=== PATIENT | female | born 1960 | race Caucasian/White ===

== ENCOUNTER 2018-03-13 18:33 | Emergency (ER) | payer BC ==
[2018-03-13] MEDS ORDERED: METHYLPREDNISOLONE 125 MG INJ ONE (19:40)
[2018-03-13] MEDS ORDERED: IPRATROPIUM BROM 0.5MG/2.5ML ONE ×2 (19:40→22:04)
[2018-03-13] MEDS ORDERED: LEVALBUTEROL 1.25 MG/3 ML NEB ONE (19:41)
[2018-03-13] MEDS ORDERED: MAGNESIUM SULFATE 1 gm IVPB 1 GM/100 ML BAG IV ONE (19:41)
[2018-03-13 20:07] LABS: Absolute Lymphocytes (CBC) 1.4 K/uL (0.7-4.9); Absolute Monocytes 0.6 K/uL (0.1-1.3); Absolute Neutrophil 8.7 K/uL (1.8-8.0); Basophils % 0.3 % (0-1.3); Eosinophils % 2.4 % (0-4.4); Lymphocytes % 12.8 % (15.3-44.8); MCH 29.3 pg (27.0-35.0); MCV 87.1 fL (80-100); MPV 8.8 fL (7.6-11.3); Monocytes % 5.4 % (3.3-12.3); RBC Red Blood Cell Count 5.17 M/uL (3.86-4.86)
--- NOTE | 2018-03-13 21:30 | RAD REPORT ---
EXAM DESCRIPTION: RAD - Chest Pa And Lat (2 Views) - 03/13/2018 8:52 pm CLINICAL HISTORY: Cough and congestion COMPARISON: October 2017 TECHNIQUE: PA and lateral views of the chest were obtained. FINDINGS: The lungs are clear. Interstitial markings are similar to comparison. Heart size is liliana l and central vasculature is within normal limits. No pleural effusion or pneumothorax seen. No acu te bony finding noted. No aortic abnormality. IMPRESSION: No acute cardiopulmonary process. No significant interval change.
[2018-03-13] MEDS ORDERED: ALBUTEROL 2.5 MG/3 ML NEB SOL ONE (22:04)
--- NOTE | 2018-03-13 23:06 | ER ---
Nurse's Notes [facility] Name: Guillermina Diallo Age: 58 yrs Sex: Female : 1960 Arrival Date: 03/13/2018 Time: 18:34 Bed 14 Private MD: Giovany Rincon Diagnosis: Bronchitis, not specified as acute or chronic Presentation: 03/13 18:43 Presenting complaint: Patient states: I have had SOB and a cough for one week, I went la1 to urgent care and they sent me here to R/O PNE. Transition of care: patient was not received from another setting of care. Onset of symptoms was March 13, 2018. Initial Sepsis Screen: Does the patient meet any 2 criteria? No. Patient's initial sepsis screen is negative. Does the patient have a suspected source of infection? No. Patient initial sepsis screen negative. Care prior to arrival: None. 18:43 Method Of Arrival: Ambulatory la1 18:43 Acuity: KRISTY 3 la1 Historical: - Allergies: 18:44 No Known Allergies; la1 - PMHx: 18:44 None; la1 - Immunization history:: Adult Immunizations up to date. - Social history:: Smoking status: Patient/guardian denies using tobacco. Screenin:45 Abuse screen: Denies threats or abuse. Denies injuries from another. Nutritional aa1 screening: No deficits noted. Tuberculosis screening: No symptoms or risk factors identified. Fall Risk None identified. Assessment: 19:45 General: Appears in no apparent distress. comfortable, Behavior is calm, cooperative, aa1 appropriate for age. Pain: Denies pain. Neuro: Level of Consciousness is awake, alert, obeys commands, Oriented to person, place, time, situation, Moves all extremities. Full function Speech is normal. Cardiovascular: Heart tones S1 S2 present Rhythm is regular. Respiratory: Reports shortness of breath cough that is productive, Airway is patent Respiratory effort is even, unlabored, Respiratory pattern is regular, symmetrical, Breath sounds are clear bilaterally. Onset: The symptoms/episode began/occurred 1 week ago, the patient has mild shortness of breath. GI: No signs and/or symptoms were reported involving the gastrointestinal system. : No signs and/or symptoms were reported regarding the genitourinary system. EENT: No signs and/or symptoms were reported regarding the EENT system. Derm: Skin is intact, is healthy with good turgor, Skin is pink, warm \T\ dry. Musculoskeletal: Circulation, motion, and sensation intact. Capillary refill < 3 seconds. 20:56 Reassessment: Patient appears in no apparent distress at this time. Patient and/or aa1 family updated on plan of care and expected duration. Pain level reassessed. Patient is alert, oriented x 3, equal unlabored respirations, skin warm/dry/pink. Pt back from xray; awaiting results. 21:35 Reassessment: Patient appears in no apparent distress at this time. Patient and/or aa1 family updated on plan of care and expected duration. Pain level reassessed. Patient is alert, oriented x 3, equal unlabored respirations, skin warm/dry/pink. Awaiting provider reassessment. 22:24 Reassessment: Patient appears in no apparent distress at this time. Patient and/or aa1 family updated on plan of care and expected duration. Pain level reassessed. Patient is alert, oriented x 3, equal unlabored respirations, skin warm/dry/pink. 2nd neb tx in progress. 23:19 Reassessment: Patient appears in no apparent distress at this time. Patient is alert, aa1 oriented x 3, equal unlabored respirations, skin warm/dry/pink. Discussed d/c \T\ f/u instructions with pt; denies questions or concerns at this time Patient denies pain at this time. Patient states feeling better. Patient states symptoms have improved. Vital Signs: 18:44 BP 124 / 89; Pulse 101; Resp 21; Temp 98.0(TE); Pulse Ox 93% on R/A; Weight 67.13 kg; la1 Height 5 ft. 4 in. (162.56 cm); 19:49 BP 124 / 70; Pulse 91; Resp 20; Pulse Ox 100% on Nebulizer Mask; mt 20:41 BP 113 / 63; Pulse 98; Resp 18; Pulse Ox 96% on R/A; mt 21:35 BP 117 / 60; Pulse 87; Resp 18; Pulse Ox 94% ; Pain 0/10; aa1 22:24 BP 110 / 68; Pulse 89; Resp 18; Pulse Ox 98% on Nebulizer Mask; Pain 0/10; aa1 23:19 BP 107 / 63; Pulse 98; Resp 18; Pulse Ox 98% on R/A; Pain 0/10; aa1 18:44 Body Mass Index 25.40 (67.13 kg, 162.56 cm) la1 ED Course: 18:34 Patient arrived in ED. as 18:34 Giovany Rincon MD is Private Physician. as 18:44 Triage completed. la1 18:45 Arm band placed on left wrist. la1 19:00 Macey Dick FNP-C is [facility]. kb 19:00 Tobi Reid MD is Attending Physician. kb 19:39 Jenn Mckinnon RN is Primary Nurse. aa1 19:45 Patient has correct armband on for positive identification. Bed in low position. Call aa1 light in reach. Warm blanket given. Diet: Patient given water. 19:45 Inserted saline lock: 20 gauge in right antecubital area, using aseptic technique. mt Blood collected. 19:45 Initial lab(s) drawn, by ED staff, sent to lab. aa1 20:50 Chest Pa And Lat (2 Views) XRAY In Process Unspecified. EDMS 23:19 No provider procedures requiring assistance completed. IV discontinued, intact, aa1 bleeding controlled, No redness/swelling at site. Pressure dressing applied. Administered Medications: 19:45 Drug: SOLU-Medrol 125 mg Route: IVP; Site: right antecubital; aa1 23:19 Follow up: Response: No adverse reaction; Marked relief of symptoms aa1 19:47 Drug: Magnesium Sulfate 1 grams Route: IVPB; Infused Over: 1 hrs; Site: right aa1 antecubital; 20:58 Follow up: IV Status: Completed infusion aa1 20:59 Follow up: IV Status: Completed infusion aa1 19:51 Drug: Xopenex (3) 1.25 mg Route: Inhalation; aa1 19:51 Drug: AtroVENT Aerosol 0.5 mg Route: Inhalation; aa1 22:07 Drug: DuoNeb (3:1) (2.5 mg - 0.5 mg) 3 ml Route: Nebulizer; bp 23:18 Follow up: Response: No adverse reaction; Marked relief of symptoms aa1 Outcome: 23:05 Discharge ordered by . kb 23:21 Discharged to home ambulatory. aa1 23:21 Condition: good 23:21 Discharge instructions given to patient, Instructed on discharge instructions, follow up and referral plans. medication usage, Demonstrated understanding of instructions, follow-up care, medications, Prescriptions given X 2. 23:21 Patient left the ED. aa1 Signatures: Dispatcher [employer] EDMacey Najera, ELLIOT DEL CID-Jenn Lowery RN RN aa1 Breanna Martinez Lee, RN RN la1 Vilma Stewart mt, Brian RN RN bp
--- NOTE | 2018-03-13 23:06 | EDPHYS ---
Physician Documentation [facility] Name: Guillermina Diallo Age: 58 yrs Sex: Female : 1960 Arrival Date: 03/13/2018 Time: 18:34 Bed 14 Private MD: Giovany Rincon ED Physician Tobi Reid HPI: 03/13 19:48 This 58 yrs old Female presents to ER via Ambulatory with complaints of kb Cough, Shortness Of Breath. 19:48 The patient or guardian reports cough, that is intermittent, described as moderate, kb with no sputum, difficulty breathing. Onset: The symptoms/episode began/occurred 1 week(s) ago. Severity of symptoms: At their worst the symptoms were moderate, in the emergency department the symptoms are unchanged. Modifying factors: The symptoms are alleviated by nothing, the symptoms are aggravated by nothing. Associated signs and symptoms: The patient has no apparent associated signs or symptoms. The patient has not experienced similar symptoms in the past. The patient has not recently seen a physician. Pt states she has had a cough and intermittent shortness of breath for over a week. Went to urgent care and was sent here for evaluation. States "I will do whatever you want, but I'm not staying overnight. I cannot be admitted." Has been doing breathing treatments and using inhaler at home with no relief. . Historical: - Allergies: 18:44 No Known Allergies; la1 - PMHx: 18:44 None; la1 - Immunization history:: Adult Immunizations up to date. - Social history:: Smoking status: Patient/guardian denies using tobacco. ROS: 19:46 Constitutional: Negative for fever, chills, and weight loss, ENT: Negative for injury, kb pain, and discharge, Neck: Negative for injury, pain, and swelling, Cardiovascular: Negative for chest pain, palpitations, and edema, Abdomen/GI: Negative for abdominal pain, nausea, vomiting, diarrhea, and constipation, Back: Negative for injury and pain, MS/Extremity: Negative for injury and deformity, Skin: Negative for injury, rash, and discoloration, Neuro: Negative for headache, weakness, numbness, tingling, and seizure. 19:46 Respiratory: Positive for cough, with no reported sputum, dyspnea on exertion, shortness of breath, Negative for hemoptysis, orthopnea, pleurisy, sputum production, wheezing. Exam: 19:46 Constitutional: This is a well developed, well nourished patient who is awake, alert, kb and in no acute distress. Head/Face: Normocephalic, atraumatic. Chest/axilla: Normal chest wall appearance and motion. Nontender with no deformity. No lesions are appreciated. Cardiovascular: Regular rate and rhythm with a normal S1 and S2. No gallops, murmurs, or rubs. Normal PMI, no JVD. No pulse deficits. Abdomen/GI: Soft, non-tender, with normal bowel sounds. No distension or tympany. No guarding or rebound. No evidence of tenderness throughout. Skin: Warm, dry with normal turgor. Normal color with no rashes, no lesions, and no evidence of cellulitis. MS/ Extremity: Pulses equal, no cyanosis. Neurovascular intact. Full, normal range of motion. Neuro: Awake and alert, GCS 15, oriented to person, place, time, and situation. Cranial nerves II-XII grossly intact. Motor strength 5/5 in all extremities. Sensory grossly intact. Cerebellar exam normal. Normal gait. 19:46 Respiratory: the patient does not display signs of respiratory distress, Respirations: normal, Breath sounds: decreased breath sounds, that are moderate, are located in both bases, wheezing: expiratory that is moderate, is heard diffusely. Vital Signs: 18:44 BP 124 / 89; Pulse 101; Resp 21; Temp 98.0(TE); Pulse Ox 93% on R/A; Weight 67.13 kg; la1 Height 5 ft. 4 in. (162.56 cm); 19:49 BP 124 / 70; Pulse 91; Resp 20; Pulse Ox 100% on Nebulizer Mask; mt 20:41 BP 113 / 63; Pulse 98; Resp 18; Pulse Ox 96% on R/A; mt 21:35 BP 117 / 60; Pulse 87; Resp 18; Pulse Ox 94% ; Pain 0/10; aa1 22:24 BP 110 / 68; Pulse 89; Resp 18; Pulse Ox 98% on Nebulizer Mask; Pain 0/10; aa1 23:19 BP 107 / 63; Pulse 98; Resp 18; Pulse Ox 98% on R/A; Pain 0/10; aa1 18:44 Body Mass Index 25.40 (67.13 kg, 162.56 cm) la1 MDM: 19:18 Patient medically screened. kb 19:46 Data reviewed: vital signs, nurses notes. Data interpreted: Pulse oximetry: on room air kb is 93 %. Interpretation: borderline. 23:05 Counseling: I had a detailed discussion with the patient and/or guardian regarding: the kb historical points, exam findings, and any diagnostic results supporting the discharge/admit diagnosis, lab results, radiology results, the need for outpatient follow up, a family practitioner, to return to the emergency department if symptoms worsen or persist or if there are any questions or concerns that arise at home. 03/13 19:34 Order name: CBC with Diff; Complete Time: 20:20 kb 03/13 19:34 Order name: Basic Metabolic Panel; Complete Time: 20:08 kb 03/13 19:00 Order name: Chest Pa And Lat (2 Views) XRAY; Complete Time: 21:31 kb 03/13 19:34 Order name: IV Start; Complete Time: 19:48 kb Administered Medications: 19:45 Drug: SOLU-Medrol 125 mg Route: IVP; Site: right antecubital; aa1 23:19 Follow up: Response: No adverse reaction; Marked relief of symptoms aa1 19:47 Drug: Magnesium Sulfate 1 grams Route: IVPB; Infused Over: 1 hrs; Site: right aa1 antecubital; 20:58 Follow up: IV Status: Completed infusion aa1 20:59 Follow up: IV Status: Completed infusion aa1 19:51 Drug: Xopenex (3) 1.25 mg Route: Inhalation; aa1 19:51 Drug: AtroVENT Aerosol 0.5 mg Route: Inhalation; aa1 22:07 Drug: DuoNeb (3:1) (2.5 mg - 0.5 mg) 3 ml Route: Nebulizer; bp 23:18 Follow up: Response: No adverse reaction; Marked relief of symptoms aa1 Disposition: 03/14 10:04 Co-signature as Attending Physician, Tobi Reid MD. rn Disposition: 03/13/18 23:05 Discharged to Home. Impression: Bronchitis, not specified as acute or chronic. - Condition is Stable. - Discharge Instructions: Acute Bronchitis, [id number]. - Prescriptions for Prednisone 20 mg Oral Tablet - take 1 tablet by ORAL route once daily for 5 days; 5 tablet. Zithromax Z- Osei 250 mg Oral Tablet - take 1 tablet by ORAL route as directed for 5 days Day 1 - take two (2) tablets one time. Day 2, 3, 4 , 5 take one (1) tablet once daily.; 6 tablet. - Medication Reconciliation Form, Thank You Letter, Antibiotic Education, Prescription Opioid Use, Work release form form. - Follow up: Emergency Department; When: As needed; Reason: Worsening of condition. Follow up: Private Physician; When: 2 - 3 days; Reason: Recheck today's complaints, Continuance of care, Re-evaluation by your physician. Signatures: Dispatcher [employer] EDMS Macey Dick, [employer]GER-C [employer] MANAGER-Jenn Lowery, RN RN aa1 Tobi Reid MD MD rn Attema, Lee, RN RN la1 William Orozco RN RN bp
== END 2018-03-13 23:21 | disposition home or self-care (01) ==
LOC: ER 18:33
DX: J40 Bronchitis, not specified as acute or chronic (principal)
CPT/HCPCS: 36415; 71046; 80048; 85025; 94640; 96365; 96375; 99284; J2930; J3475

== ENCOUNTER 2021-01-30 07:28 | Day surgery (SDC) | payer OTHER ==
--- NOTE | 2021-01-28 22:25 | EKG ---
Test Date: 2021-01-28 Test Time: 11:50:33 Cabin Agent: JOSE GUADALUPE MEASUREMENT RESULTS: Intervals: Rate: 62 AL: 134 QRSD: 68 QT: 420 QTc: 426 Richardson: P: 23 AL: 134 QRS: 57 T: 54 INTERPRETIVE STATEMENTS: Normal sinus rhythm Normal ECG No previous ECG available for comparison Electronically Signed On 01-28-21 22:25:23 BLOOD SPLATTER ANALYST by Dayton Lindsey
[2021-01-30] MEDS ORDERED: OFLOXACIN OPH 0.3%-5 ML BTL ONE (08:07)
[2021-01-30] MEDS ORDERED: Ringers Lactate 1,000 ML IV ONE (08:16)
[2021-01-30] MEDS ORDERED: LIDOCAINE 2% MPF 5 ML VIAL ONE (08:31)
[2021-01-30] MEDS ORDERED: propofoL 200 MG/20 ML VIAL IV ONE (08:31)
[2021-01-30] MEDS ORDERED: FENTANYL CITR 100 MCG/2 ML ONE (08:31)
[2021-01-30] MEDS ORDERED: MIDAZOLAM HCL 2 MG/2 ML INJ ONE (08:31)
[2021-01-30] MEDS ORDERED: ONDANSETRON 4 MG/2 ML VIAL ONE (08:33)
[2021-01-30] MEDS ORDERED: OXYMETAZOLINE HCL 0.05% 15ML NAS ONE (08:35)
[2021-01-30 09:41] VITALS: BP 131/64; TEMP 97; O2SAT 96
[2021-01-30] MEDS ORDERED: IBUPROFEN 400 MG TAB ONE (09:49)
--- NOTE | 2021-02-06 11:27 | OP ---
Date of Procedure: 01/30/2021 Surgeon: Mari Hickman MD Preoperative Diagnoses: Conductive hearing loss, right chronic serous otitis media with inability to tolerate in office procedure. Postoperative Diagnoses: Conductive hearing loss, right chronic serous otitis media with inability t o tolerate in office procedure. Procedure: Right myringotomy with tympanostomy tube placement under general anesthesia and nasal end oscopy. Indications For Procedure: Ms. Diallo presented with a right unilateral serous effusion, which did no t improve over a 3 month period. We recommended placement of a tympanostomy tube and nasal endoscopy to evaluate the opening of the eustachian tube and other nasopharyngeal structures. The patient had severe anxiety and was unable to tolerate the procedure in the office. She was therefore brought to the operating room for her treatment. Anesthesia: General via LMA. Iv Fluids: 250 mL. Implants: Paparella type 1 tube to the right eardrum. Description Of Procedure: The patient was brought to the operating room. She was placed under gener al anesthesia via LMA. The left ear was examined using an ear speculum and the operating microscope. There was no evidence of tympanic perforation, retraction, or middle ear fluid. Attention was then turned to the right ear. The right ear was mildly retracted within light padma appearing serous eff usion. A myringotomy knife was used to make an incision in the anterior-inferior quadrant and a 5-Fr ench Ngo suction was used to remove the middle ear fluid. A Paparella type 1 tympanostomy tube w as placed using an alligator and pick across the myringotomy incision. The lumen of the tube was the n suctioned using a 3-Estonian suction. Due to the lack of visible mucosal inflammation or active infe ction no antibiotic eardrops were required. The operating microscope was then removed from the field and a 0 degree rigid endoscope was used to perform a nasal endoscopy. The rigid scope was passed th rough the nasal cavity. The septum, inferior turbinate, middle turbinate, superior turbinate were al l unremarkable with no evidence of significant mucosal inflammation, no polyps, no significant mucus, and no purulence. The scope was then passed to the nasopharynx where there was no significant adeno id tissue, the fossa of Rosenmuller appeared clear, the torus tubarius appeared smooth but edematous and the mucosa of the eustachian tube opening appeared edematous, but no evidence of tumor, friabilit y, or other worrisome soft tissue process. A similar procedure was performed on the left side. Due to equipment malfunction, I was then able to take photographs of the nasopharynx during this procedur e. The scope was withdrawn from the nose and the procedure was concluded. The patient was returned to Anesthesia for awakening and extubation in the operating room, which proceeded without difficulty. Disposition: The patient will be discharged home later today and follow up with Dr. Vick ventura as previously scheduled. EDWIN/MICHAEL Voice ID: [id number] Report ID: [id number]
== END 2021-01-30 10:00 | disposition home or self-care (01) ==
LOC: PRE 07:28
PROVIDERS: ATTEND Otolaryngology
PROC: 099570Z Drainage of Right Middle Ear with Drainage Device, Via Natural or Artificial Opening (ICD-10-PCS; 2021-01-30)
PROC: 09JY8ZZ Inspection of Sinus, Via Natural or Artificial Opening Endoscopic (ICD-10-PCS; 2021-01-30)
PROC: 099670Z Drainage of Left Middle Ear with Drainage Device, Via Natural or Artificial Opening (ICD-10-PCS; principal; 2021-01-30 08:30)
DX: H65.21 Chronic serous otitis media, right ear (principal); H68.021 Chronic Eustachian salpingitis, right ear; H90.6 Mixed conductive and sensorineural hearing loss, bilateral
CPT/HCPCS: 69436; 31231; 93005; J2704; J2250; J3010; J7120; J2405

== ENCOUNTER 2022-05-14 07:12 | Day surgery (SDC) | payer OTHER ==
[2022-05-14] MEDS ORDERED: Ringers Lactate 1,000 ML IV ONE (07:36)
[2022-05-14] MEDS: OFLOXACIN OPH 0.3%-5 ML BTL ONE ×3 (08:08→09:35)
[2022-05-14] MEDS ORDERED: MIDAZOLAM HCL 2 MG/2 ML INJ ONE (09:21)
[2022-05-14] MEDS ORDERED: FENTANYL CITR 100 MCG/2 ML ONE (09:21)
[2022-05-14] MEDS ORDERED: propofoL 200 MG/20 ML VIAL IV ONE (09:21)
[2022-05-14] MEDS ORDERED: ONDANSETRON 4 MG/2 ML VIAL ONE (09:22)
[2022-05-14] MEDS ORDERED: LIDOCAINE 1% MPF 5 ML VIAL ONE (09:22)
--- NOTE | 2022-05-14 09:44 | P.OP ---
Date of Service: 05/14/22 Preoperative diagnosis: Chronic nonsuppurative otitis media, right; bilateral mixed hearing loss Postoperative diagnosis: Same Procedure: Right myringotomy and tympanostomy tube placement Surgeon: Mari Hickman MD Vamp Liner: None Anesthesia: General via laryngeal mask airway Estimated blood loss: Nil Fluids/blood products: None Specimen: None Implants: Pennington T tube Findings: Significant serous otitis media with mild tympanic retraction Indication: The patient had persistent symptoms and abnormal findings in spite of good medical management. Details of operation: The patient was brought to the operating room and placed under general anesthesia via laryngeal mask airway. The right ear was visualized under the operating microscope with assistance of an ear speculum. Cerumen was removed from the canal using a wire curette. A myringotomy incision was made in the anterior-inferior quadrant and copious serous, padma fluid was aspirated from the middle ear space. The middle ear space was not significantly inflamed. A Pennington T tube was positioned across the incision using an alligator forcep and pick. No eardrops were necessary. Patient was returned to care of anesthesia for awakening and transportation to the recovery room. Disposition the patient will be discharged home later today in the care of their family and follow-up with Dr. Hickman's office in approximately 1 to 2 weeks.
[2022-05-14 10:07] VITALS: O2SAT 98
[2022-05-14 13:14] VITALS: BP 120/86; TEMP 97
== END 2022-05-14 10:50 | disposition home or self-care (01) ==
LOC: OR 07:12
PROVIDERS: ATTEND Otolaryngology
PROC: 099570Z Drainage of Right Middle Ear with Drainage Device, Via Natural or Artificial Opening (ICD-10-PCS; principal; 2022-05-14 09:15)
DX: H65.491 Other chronic nonsuppurative otitis media, right ear (principal); H90.6 Mixed conductive and sensorineural hearing loss, bilateral
CPT/HCPCS: 69436; J2704; J2250; J3010; J7120; J2405

== ENCOUNTER 2022-10-13 11:22 | Emergency (ER) | payer OTHER ==
[2022-10-13] MEDS ORDERED: IBUPROFEN 400 MG TAB ONE (12:18)
[2022-10-13] MEDS ORDERED: HYDROCODONE/APAP 10/325 TAB ONE (12:18)
[2022-10-13] MEDS ORDERED: IBUPROFEN 200 MG TAB PO ONE (12:18)
--- NOTE | 2022-10-13 12:34 | RAD REPORT ---
EXAM DESCRIPTION: RAD - Wrist Right 3 View - 10/13/2022 12:05 pm CLINICAL HISTORY: Right wrist pain FINDINGS: No fracture or dislocation is seen. No significant bone or joint abnormality noted
--- NOTE | 2022-10-13 14:01 | ER ---
Nurse's Notes [facility] Name: Guillermina Diallo Age: 62 yrs Sex: Female : 1960 Arrival Date: 10/13/2022 Time: 11:25 Bed 3 Private MD: Magui Zarate Diagnosis: Pain in right wrist;Sprain of unspecified part of right wrist and hand Presentation: 10/13 11:48 Chief complaint: Patient states: R wrist pain, swelling, 30 min PRACTICE MANAGERS. No specific trauma ll1 or injury. No blood thinners. Coronavirus screen: Vaccine status: Patient reports receiving the 2nd dose of the covid vaccine. Client denies travel out of the [place] in the last 14 days. At this time, the client does not indicate any symptoms associated with coronavirus-19. Ebola Screen: Patient denies travel to an Ebola-affected area in the 21 days before illness onset. Initial Sepsis Screen: Does the patient meet any 2 criteria? No. Patient's initial sepsis screen is negative. Does the patient have a suspected source of infection? No. Patient's initial sepsis screen is negative. Risk Assessment: Do you want to hurt yourself or someone else? Patient reports no desire to harm self or others. Onset of symptoms was October 13, 2022. 11:48 Method Of Arrival: Ambulatory ll1 11:48 Acuity: KRISTY 4 ll1 Triage Assessment: 11:48 General: Appears uncomfortable, Behavior is cooperative, appropriate for age. Pain: ll1 Complains of pain in right arm Quality of pain is described as aching. Musculoskeletal: Reports pain in right arm. Injury Description: Bruise. Historical: - Allergies: 11:52 adhesive tape-silicones; ll1 - PMHx: 11:52 Hypertensive disorder; Hypothyroidism; ll1 - Immunization history:: Client reports receiving the 2nd dose of the Covid vaccine. - Social history:: Smoking status: Patient denies any tobacco usage or history of. - Family history:: not pertinent. Screenin:40 Abuse screen: Denies threats or abuse. Denies injuries from another. Nutritional ko1 screening: On. Tuberculosis screening: No symptoms or risk factors identified. Fall Risk None identified. Assessment: 12:40 General: Appears in no apparent distress. comfortable, Behavior is calm, cooperative, ko1 appropriate for age. Pain: Complains of pain in palmar aspect of right wrist. Neuro: No deficits noted. Cardiovascular: No deficits noted. Respiratory: No deficits noted. GI: No deficits noted. : No deficits noted. EENT: No deficits noted. Derm: No deficits noted. Musculoskeletal: No deficits noted. Vital Signs: 11:48 BP 154 / 74; Pulse 80; Resp 16; Temp 98.0; Pulse Ox 98% ; Weight 63.5 kg; Height 5 ft. ll1 4 in. (162.56 cm); Pain 7/10; 14:02 BP 144 / 86; Pulse 76; Pulse Ox 99% on R/A; ko1 11:48 Body Mass Index 24.03 (63.50 kg, 162.56 cm) ll1 ED Course: 11:25 Patient arrived in ED. am2 11:25 Magui Zarate is Private Physician. am2 11:31 Enrico Rossi MD is Attending Physician. brayan 11:48 Arm band placed on. ll1 11:51 Triage completed. ll1 12:05 Wrist Right 3 View XRAY In Process Unspecified. EDMS 12:14 Tae Marlow, RUKHSANA is Primary Nurse. ko1 12:40 Patient has correct armband on for positive identification. Bed in low position. Call ko1 light in reach. Side rails up X 1. Pulse ox on. NIBP on. Door closed. Noise minimized. Ice pack to injury. 14:00 Magui Zarate is Referral Physician. [facility] 14:00 Flaco Jalloh MD is Referral Physician. [facility] 14:02 No provider procedures requiring assistance completed. Patient did not have IV access ko1 during this emergency room visit. Administered Medications: 12:22 Drug: Motrin (ibuprofen) 600 mg Route: PO; ko1 12:22 Drug: [place] (HYDROcodone-acetaminophen) 10 mg-325 mg 1 tabs Route: PO; ko1 Medication: 14:02 VIS not applicable for this client. ko1 Outcome: 14:01 Discharge ordered by . brayan 14:03 Discharged to home ambulatory. ko1 14:03 Condition: stable 14:03 Discharge instructions given to patient, Instructed on discharge instructions, follow up and referral plans. medication usage, Demonstrated understanding of instructions, follow-up care, medications, Prescriptions given X 1. 14:08 Patient left the ED. ko1 Signatures: Dispatcher [employer] Enrico Jones MD MD cha Moreno, Amanda am2 Lewis, Lynsay RN RN ll1 Tea Marlow RN RN ko1
--- NOTE | 2022-10-13 14:01 | EDPHYS ---
Physician Documentation [facility] Name: Guillermina Diallo Age: 62 yrs Sex: Female : 1960 Arrival Date: 10/13/2022 Time: 11:25 Bed 3 Private MD: Magui Zarate ED Physician Enrico Rossi HPI: 10/13 13:57 This 62 yrs old Female presents to ER via Ambulatory with complaints of Wrist brayan Injury - right. 13:57 The patient or guardian reports decreased range of motion, pain. The complaints affect brayan the right wrist diffusely. Context: The problem was sustained at work, resulted from a fall. Onset: The symptoms/episode began/occurred just prior to arrival. Modifying factors: The symptoms are alleviated by nothing, the symptoms are aggravated by movement. Associated signs and symptoms: The patient has no apparent associated signs or symptoms. Compartment Syndrome negative for numbness, tingling, positive for pain. The patient has not experienced similar symptoms in the past. Historical: - Allergies: 11:52 adhesive tape-silicones; ll1 - PMHx: 11:52 Hypertensive disorder; Hypothyroidism; ll1 - Immunization history:: Client reports receiving the 2nd dose of the Covid vaccine. - Social history:: Smoking status: Patient denies any tobacco usage or history of. - Family history:: not pertinent. ROS: 13:57 Constitutional: Negative for fever, chills, and weight loss, Eyes: Negative for injury, brayan pain, redness, and discharge, ENT: Negative for injury, pain, and discharge, Neck: Negative for injury, pain, and swelling, Cardiovascular: Negative for chest pain, palpitations, and edema, Respiratory: Negative for shortness of breath, cough, wheezing, and pleuritic chest pain, Abdomen/GI: Negative for abdominal pain, nausea, vomiting, diarrhea, and constipation, Back: Negative for injury and pain, : Negative for injury, bleeding, discharge, and swelling, Skin: Negative for injury, rash, and discoloration, Neuro: Negative for headache, weakness, numbness, tingling, and seizure, Psych: Negative for depression, anxiety, suicide ideation, homicidal ideation, and hallucinations, Allergy/Immunology: Negative for hives, rash, and allergies, Endocrine: Negative for neck swelling, polydipsia, polyuria, polyphagia, and marked weight changes, Hematologic/Lymphatic: Negative for swollen nodes, abnormal bleeding, and unusual bruising. 13:57 MS/extremity: Positive for decreased range of motion, pain, tenderness, of the dorsal aspect of right wrist and palmar aspect of right wrist. Exam: 13:57 Constitutional: This is a well developed, well nourished patient who is awake, alert, brayan and in no acute distress. Head/Face: Normocephalic, atraumatic. Eyes: Pupils equal round and reactive to light, extra-ocular motions intact. Lids and lashes normal. Conjunctiva and sclera are non-icteric and not injected. Cornea within normal limits. Periorbital areas with no swelling, redness, or edema. ENT: Nares patent. No nasal discharge, no septal abnormalities noted. Tympanic membranes are normal and external auditory canals are clear. Oropharynx with no redness, swelling, or masses, exudates, or evidence of obstruction, uvula midline. Mucous membranes moist. Neck: Trachea midline, no thyromegaly or masses palpated, and no cervical lymphadenopathy. Supple, full range of motion without nuchal rigidity, or vertebral point tenderness. No Meningismus. Chest/axilla: Normal chest wall appearance and motion. Nontender with no deformity. No lesions are appreciated. Cardiovascular: Regular rate and rhythm with a normal S1 and S2. No gallops, murmurs, or rubs. Normal PMI, no JVD. No pulse deficits. Respiratory: Lungs have equal breath sounds bilaterally, clear to auscultation and percussion. No rales, rhonchi or wheezes noted. No increased work of breathing, no retractions or nasal flaring. Abdomen/GI: Soft, non-tender, with normal bowel sounds. No distension or tympany. No guarding or rebound. No evidence of tenderness throughout. Back: No spinal tenderness. No costovertebral tenderness. Full range of motion. Skin: Warm, dry with normal turgor. Normal color with no rashes, no lesions, and no evidence of cellulitis. Neuro: Awake and alert, GCS 15, oriented to person, place, time, and situation. Cranial nerves II-XII grossly intact. Motor strength 5/5 in all extremities. Sensory grossly intact. Cerebellar exam normal. Normal gait. Psych: Awake, alert, with orientation to person, place and time. Behavior, mood, and affect are within normal limits. 13:57 Musculoskeletal/extremity: ROM: intact in all extremities, full active range of motion, full passive range of motion, in all extremities, Circulation is intact in all extremities. Sensation intact. Compartment Syndrome exam of affected extremity: is normal. Joints: All joints appear normal with full range of motion. Tendon exam: specific tendon testing normal through active and passive range of motion Vital Signs: 11:48 BP 154 / 74; Pulse 80; Resp 16; Temp 98.0; Pulse Ox 98% ; Weight 63.5 kg; Height 5 ft. ll1 4 in. (162.56 cm); Pain 7/10; 14:02 BP 144 / 86; Pulse 76; Pulse Ox 99% on R/A; ko1 11:48 Body Mass Index 24.03 (63.50 kg, 162.56 cm) ll1 MDM: 11:32 Patient medically screened. brayan 14:01 Differential diagnosis: closed fracture, contusion, abrasion, tendonitis. Data brayan reviewed: vital signs, nurses notes, radiologic studies, plain films. Data interpreted: surveillance system monitor: not applicable for this patient encounter. rate is 80 beats/min, rhythm is regular, Pulse oximetry: on room air is 98 %. Test interpretation: by ED physician or midlevel provider: plain radiologic studies. Counseling: I had a detailed discussion with the patient and/or guardian regarding: the historical points, exam findings, and any diagnostic results supporting the discharge/admit diagnosis, radiology results, the need for outpatient follow up, for definitive care, a family practitioner, a orthopedic surgeon. 10/13 11:32 Order name: Wrist Right 3 View XRAY; Complete Time: 13:27 brayan 10/13 11:32 Order name: Ice pack; Complete Time: 12:16 brayan Administered Medications: 12:22 Drug: Motrin (ibuprofen) 600 mg Route: PO; ko1 12:22 Drug: Wiley [place] (HYDROcodone-acetaminophen) 10 mg-325 mg 1 tabs Route: PO; ko1 Disposition Summary: 10/13/22 14:01 Discharge Ordered Location: Home brayan Problem: new brayan Symptoms: have improved brayan Condition: Stable brayan Diagnosis - Pain in right wrist brayan - Sprain of unspecified part of right wrist and hand brayan Followup: brayan - With: Private Physician - When: 2 - 3 days - Reason: Recheck today's complaints, Continuance of care, Re-evaluation by your physician Followup: brayan - With: Magui Zarate - When: 2 - 3 days - Reason: Recheck today's complaints, Continuance of care, Re-evaluation by your physician Followup: brayan - With: Flaco Jalloh MD - When: 2 - 3 days - Reason: Recheck today's complaints, Re-evaluation by your physician Discharge Instructions: - Musculoskeletal Pain brayan - Wrist Pain, Adult [facility] - Discharge Summary Sheet ko1 - How to Use Cold Therapy, [id number] brayan - Wrist Pain, Adult, [id number] [facility] Forms: - Work release form ko1 - Medication Reconciliation Form [facility] - Thank You Letter brayan - Antibiotic Education [facility] - Prescription Opioid Use [facility] Prescriptions: - Motrin IB 200 mg Oral Tablet - take 2 tablet by ORAL route every 6 hours As needed as needed with food; 30 brayan tablet; Refills: 0, Product Selection Permitted Signatures: Dispatcher [employer] Enrico Jones MD MD cha Lewis, Lynsay RN RN ll1 Tea Marlow RN RN ko1
[2022-10-13 14:22] VITALS: TEMP 98
[2022-10-13 14:23] VITALS: BP 144/86; O2SAT 99
== END 2022-10-13 14:08 | disposition home or self-care (01) ==
LOC: ER 11:22
DX: S63.501A Unspecified sprain of right wrist, initial encounter (principal); S63.91XA Sprain of unspecified part of right wrist and hand, initial encounter; Z91.048 Other nonmedicinal substance allergy status
CPT/HCPCS: 99284